=== PATIENT | female | born 1995 | race Caucasian/White ===

== ENCOUNTER 2017-01-20 17:55 | Emergency (ER) | payer BC ==
[~2017-01-20] VITALS: Ht 157.5 cm; Wt 52.6 kg
[2017-01-20 18:16] VITALS: BP 122/81
[2017-01-20] MEDS ORDERED: ZOFRAN4 M3 ORAL (19:14)
[2017-01-20] MEDS ORDERED: IBUPROFEN600 MG ORAL (19:14)
[2017-01-20 19:19] VITALS: BP 122/81
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
--- NOTE | 2017-01-21 11:47 | Diagnostic Imaging Report ---
Indication: Pain 3 views of the right knee were obtained. Findings: No acute fracture, malalignment, or joint effusion are identified. Joint space is relatively well-maintained. Bone mineralization is within normal limits for age. Impression: Negative exam
--- NOTE | 2017-01-21 11:47 | Diagnostic Imaging Report ---
Indication: Pain Comparison: None Findings: Two views of the right tibia and fibula were obtained. No acute fracture, malalignment, or periosteal reaction are identified. Soft tissues are unremarkable. Impression: Negative examination of the tibia and fibula
== END 2017-01-20 19:24 | disposition home or self-care (01) ==
LOC: EMR 18:25
DX: S06.0X1A Concussion with loss of consciousness of 30 minutes or less, initial encounter (principal); V49.49XA Driver injured in collision with other motor vehicles in traffic accident, initial encounter; W22.11XA Striking against or struck by driver side automobile airbag, initial encounter; Y93.9 Activity, unspecified; Y99.9 Unspecified external cause status; Z88.0 Allergy status to penicillin; R42 Dizziness and giddiness; R11.0 Nausea; M79.661 Pain in right lower leg
CPT/HCPCS: 99284